=== PATIENT | male | born 1985 | race Caucasian/White ===

== ENCOUNTER 2019-01-04 07:20 | Inpatient (IN) | payer OTHER ==
[~2019-01-04] VITALS: Ht 167.6 cm; Wt 68.7 kg
--- NOTE | 2019-01-04 07:20 | NUR ---
PT IN WHEELCHAIR TO ER BED 10
[2019-01-04 07:24] VITALS: BP 145/82
[2019-01-04] MEDS ORDERED: NACL 0.9% 1,000 ML IV ONE (07:30)
[2019-01-04] MEDS ORDERED: LORazepam 2 MG/ML VIAL IVP ONE ×2 (07:30→07:40)
--- NOTE | 2019-01-04 07:33 | NUR ---
PT BIB FAMILY C/O SEIZURE X 3 AT HOME LASTING APPROX 1 MINUTE EACH. PT POST-ITCAL AND DIAPHORETIC. DR. ANDERSON AT BEDSIDE FOR EVALUATION. PT TRIAGED AT BEDSIDE. IV ESTABLISHED, SEIZURE PRECAUTIONS IN PLACE. PT SINUS TACH ON MONITOR. ON 2 LITER O2 VIA NC. PT MEDICATED ORDERED. FAMILY AT BEDSIDE. EKG COMPLETED.
[2019-01-04] MEDS ORDERED: LORazepam 2 MG/ML VIAL ONE ×2 (07:34→07:48)
--- NOTE | 2019-01-04 07:42 | NUR ---
PT HAD 2 WITNESSED SEIZURE IN ED LASTING APPROX 1 MINUTE. AIRWAY PROTECTED AND MAINTAINED. SUCTIONED PT NEEDED. DR. ATWOOD AT BEDSIDE FOR RE-EVALUATION. MEDICATED ORDERED.
--- NOTE | 2019-01-04 07:51 | NUR ---
PT BIB FAMILY WITNESSED SEIZURES AT HOME X 3 LASING APPROX. 1 MINUTE EACH. PT POSTICTAL AND DIAPHORETIC. NO INCONTINENCE NOTED. PER PT'S FAMILY PT COMPLIANT WITH SEIZURE MED: KEPPRA. BREATHING EVEN AND UNLABORED, AIRWAY MAINTAINED PLACED ON 2 LITER O2 VIA NC. PT ST ON DRAWING IN MACHINE TENDER. SEIZURE PRECAUTIONS IN PLACE.
--- NOTE | 2019-01-04 07:52 | NUR ---
PCXR AT BEDSIDE.
[2019-01-04 07:54] LABS: BASOPHILS # (AUTO) 0.1 K/uL (0.00-0.22); BASOPHILS % (AUTO) 0.7 % (0.0-2.0); EOSINOPHILS # (AUTO) 0.5 K/uL (0-0.4); EOSINOPHILS % (AUTO) 2.6 % (0.0-4.0); HEMATOCRIT 47.6 % (36-52); HEMOGLOBIN 15.6 g/dL (12.0-18.0); LYMPHOCYTES # (AUTO) 5.8 K/uL (2.0-11.5); LYMPHOCYTES % (AUTO) 31.7 % (20.5-51.1); MEAN CORPUSCULAR HEMOGLOBIN 31 pg (27-31); MEAN CORPUSCULAR HGB CONC 33 g/dL (33-37); MEAN CORPUSCULAR VOLUME 95.6 fL (80-94); MONOCYTES # (AUTO) 1.2 K/uL (0.8-1.0); MONOCYTES % (AUTO) 6.5 % (1.7-9.3); NEUTROPHILS # (AUTO) 10.7 K/uL (1.8-7.7); NEUTROPHILS % (AUTO) 58.5 % (42.2-75.2); PLATELET COUNT (AUTO) 283 K/uL (140-450); RED BLOOD CELL COUNT(AUTO) 4.98 MIL/uL (4.20-6.10); RED CELL DISTRIBUTION WIDTH 13.6 % (11.6-13.7); WHITE BLOOD COUNT (AUTO) 18.2 K/uL (4.8-10.8)
--- NOTE | 2019-01-04 08:16 | NUR ---
PT BACK FROM CT WITHOUT INCIDENT.
--- NOTE | 2019-01-04 08:19 | NUR ---
DR. ANDERSON AT BEDSIDE TO RE-EVALUATE PT. PT ABLE TO OPEN EYES UPON DR. ANDERSON'S DIRECTION. PT DROWSY. FAMILY REMAINS AT BEDSIDE.
[2019-01-04 08:26] LABS: PROTHROMBIN TIME 10.4 secs (10.8-13.4)
[2019-01-04 08:30] LABS: ALBUMIN 4.5 g/dL (3.4-5.0); ANION GAP 29.5 (8-16); CARBON DIOXIDE 14.5 mmol/L (21-32); CREATININE 1.3 mg/dL (0.7-1.3); TOTAL BILIRUBIN 0.4 mg/dL (0.0-1.0)
[2019-01-04] MEDS ORDERED: MAG SULF 2000 MG/WATER PREMIX 50 ML IV ONE (09:10)
[2019-01-04] MEDS ORDERED: KCL 20 MEQ/WATER INJ PREMIX 100 ML IV ONE (09:10)
--- NOTE | 2019-01-04 09:26 | NUR ---
PT'S FAMILY REMAINS AT BEDSIDE. NO SEIZURE ACTIVITY NOTED.
--- NOTE | 2019-01-04 09:37 | NUR ---
PT RE-EVALUATED BY DR. ANDERSON.
--- NOTE | 2019-01-04 09:40 | NUR ---
SPOKE TO DR. HOUSTON VIA TELEPHONE. PER DR. HOUSTON "ADMIT TO TELE, HAVE THEM CALL ME FOR ORDERS."
--- NOTE | 2019-01-04 09:48 | NUR ---
PT AROUSABLE TO SPEECH, STS "I FEEL TIRED." NO SEIZURE ACTIVITY NOTED. PT'S FAMILY REMAINS AT BEDSIDE. : MILLY: [phone], BROTHER: TAYLER [phone]. AWAITING ADMISSION TO [facility].
--- NOTE | 2019-01-04 10:12 | NUR ---
CALLED PHARMACY AND SPOKE TO PHARMACIST. PER PHARMACIST CRYSTAL MAGNESIUM 2GRAM AND POTASSIUM 20 MEQ CANNOT BE ADMINISTERED TOGETHER. PER DR. ANDERSON V/O ADMINISTER MAGENIUM 2 GRAM FIRST. INFUSING ORDERED. PT TOLERATING WELL. CHARGE NURSE ANAM SPOKE TO TELE CHARGE NURSE GOYO, POTASSIUM TO BE HANDED TO TELE CHARGE NURSE. PT REMAINS DROWSY, ARSOUSABLE TO SPEECH. ORIENTED X4. FAMILY AT BEDSIDE. NO FURTHER SEIZURE ACTIVITY.
--- NOTE | 2019-01-04 10:22 | NUR ---
RECEIVED PT FROM AM NURSE IN STABLE CONDITION. AWAKE,ALERT AND ORIENTED X4. ON TELE MONITOR. WITH NO C/O ANY DISCOMFORT NOR PAIN NOTED. WITH IVF INFUSING WELL ON THE RT AC G#20, CLEAR AND PATENT. PLAN OF CARE DISCUSSED AND VERBALIZED UNDERSTANDING. BED ON LOW POSITION, SIDE RAILS ARE PADDED FOR SEIZURE PRECAUTIONS. CALL LIGHT AND URINAL WITHIN EASY REACH . WILL CONTINUE TO MONITOR. Addendum: 01/04/19 at 2005 by Maribell Hernandez RN CANCEL ABOVE NOTES. WRONG TIME.
--- NOTE | 2019-01-04 10:35 | NUR ---
GOT BEDSIDE REPORT FROM CAMILLE BUSTOS. PATIENT FROM ER. PATIENT ON TELE MONIITOR AND STANDARD PRECAUTIONS IN PLACE. PATIENT AAOX4 AND ON ROOM AIR, NO DISTRESS NOTED. FALL RISK PROTOCOL IN PLACE AND SEIZURE PRECAUTIONS IN PLACE. IV ON R AC 20 G INFUSING NS AT 100, IV ASYMPTOMATIC PATENT AND INTACT. SKIN INTACT. PATIENT ABLE TO AMBULATE AND CONTINENT. BED IN LOW POSITION, CALL LIGHT WITHIN REACH, SIDE RAILS X2 UP
[2019-01-04] MEDS ORDERED: KEP500 PO (10:41)
--- NOTE | 2019-01-04 10:42 | NUR ---
Patient will be admitted to care of DR. HOUSTON. Admited to TELE. Will go to room 110-B. Belongings list completed. Report to CAMILLE GALVAN.
[2019-01-04 11:05] VITALS: BP 115/75
--- NOTE | 2019-01-04 11:15 | NUR ---
ADMINISTERED SCHEDULED MEDS, AT BEDSIDE, NO COMPLAINTS AT THIS TIME
[2019-01-04] MEDS ORDERED: DOCUSATE SODIUM 250 MG GELCAP PO PRN (11:55)
[2019-01-04] MEDS ORDERED: IPRATROPIUM 0.02% 0.5 MG/2.5 ML NEBU INH PRN (11:55)
[2019-01-04] MEDS ORDERED: SODIUM PHOSPHATE 118 ML ENEM RC PRN (11:55)
[2019-01-04] MEDS ORDERED: POTASSIUM CHLORIDE 10 MEQ TABER PO PRN (11:55)
[2019-01-04] MEDS ORDERED: ZOLPIDEM 5 MG TAB PO PRN (11:55)
[2019-01-04] MEDS ORDERED: ONDANSETRON 4 MG/2 ML VIAL IVP PRN (11:55)
[2019-01-04] MEDS ORDERED: LORazepam 2 MG/ML VIAL IVP PRN ×2 (11:55)
[2019-01-04] MEDS ORDERED: ACETAMINOPHEN 650 MG SUPP RC PRN (11:55)
[2019-01-04] MEDS ORDERED: guaiFENesin DM 200/20 MG-10 ML 10 ML UDC PO PRN (11:55)
[2019-01-04] MEDS ORDERED: ACETAMINOPHEN 325 MG TAB PO PRN (11:55)
[2019-01-04] MEDS ORDERED: ALBUTEROL 0.083% 2.5 MG/3 ML NEBU INH PRN (11:55)
[2019-01-04] MEDS ORDERED: MAGNESIUM OXIDE 400 MG TAB PO PRN (11:55)
[2019-01-04] MEDS ORDERED: MORPHINE SULFATE 2 MG/ML SYR IVP PRN (11:55)
[2019-01-04] MEDS ORDERED: ALUMINUM HYD/MAG/SIMETHICONE 30 ML UDC PO PRN (11:55)
[2019-01-04] MEDS ORDERED: BISACODYL 10 MG SUPP RC PRN (11:55)
[2019-01-04] MEDS ORDERED: POTASSIUM CHLORIDE 40 MEQ, LIDOCAINE 1% 25 MG in NACL 0.9% 250 ML IV PRN (11:55)
[2019-01-04] MEDS ORDERED: cloNIDine 0.1 MG TAB PO PRN (11:55)
[2019-01-04] MEDS ORDERED: HYDROcodone/APAP 5/325 MG 1 TAB TAB PO PRN ×2 (11:55)
[2019-01-04] MEDS ORDERED: MAG SULF 2000 MG/WATER PREMIX 50 ML IV PRN (11:55)
[2019-01-04] MEDS ORDERED: diphenhydrAMINE 50 MG/ML VIAL IVP PRN (11:55)
--- NOTE | 2019-01-04 14:53 | NUR ---
PATIENT SLEEPING, ON ROOM AIR, NO DISTRESS NOTED, AT BEDSIDE
--- NOTE | 2019-01-04 15:53 | NUR ---
PATIENT SLEEPING, ON ROOM AIR, NO COMPLAINTS AT THIS TIME
[2019-01-04 16:00] VITALS: BP 118/67
--- NOTE | 2019-01-04 17:20 | NUR ---
PATIENT SLEEPING. NO DISTRESS NOTED, ON ROOM AIR
--- NOTE | 2019-01-04 19:08 | NUR ---
GAVE REPORT TO CAMILLE CHESTER. PATIENT ENDORSED IN STABLE CONDITION
--- NOTE | 2019-01-04 19:21 | NUR ---
PAGED Rick PEREZ WILL ENDORSE TO CAMILLE CHESTER REGARDING ELEVATED WBC Addendum: 01/04/19 at 1926 by Christelle Denton RN CHARGE NURSE GOYO, SPOKE TO DR. HOUSTON REGARDING ELEVATED WBC. HE STATED PATIENT DOES NOT NEED ABX BECAUSE ELEVATED WBC IS SEIZURE RELATED. HENRIK HISTORIC SITE ADMINISTRATOR CAMILLE AWARE
--- NOTE | 2019-01-04 19:22 | NUR ---
RECEIVED PT FROM AM NURSE IN STABLE CONDITION. AWAKE,ALERT AND ORIENTED X4. ON TELE MONITOR. WITH NO C/O ANY DISCOMFORT NOR PAIN NOTED. WITH IVF INFUSING WELL ON THE RT AC G#20, CLEAR AND PATENT. PLAN OF CARE DISCUSSED AND VERBALIZED UNDERSTANDING. BED ON LOW POSITION, SIDE RAILS ARE PADDED FOR SEIZURE PRECAUTIONS. CALL LIGHT AND URINAL WITHIN EASY REACH . WILL CONTINUE TO MONITOR.
[2019-01-04 19:45] VITALS: BP 112/78
[2019-01-04] MEDS: levETIRAcetam 1,000 MG in NACL 0.9% 100 ML IV SCH (20:46)
--- NOTE | 2019-01-04 20:46 | NUR ---
PT AWAKE. NO C/O ANY DISCOMFORT NOTED. KEPPRA IVPB SCHEDULED GIVEN. WILL CONTINUE TO MONITOR.
--- NOTE | 2019-01-04 22:30 | NUR ---
MADE ROUNDS. PT ASLEEP. NO S/S OF ANY DISCOMFORT NOR PAIN NOTED.
[2019-01-05 00:20] VITALS: BP 104/62
--- NOTE | 2019-01-05 00:30 | NUR ---
PT AWAKE. VITLA SIGNS STABLE. NO C/O ANY PAIN NOTED. WILL CONTINUE TO MONITOR.
--- NOTE | 2019-01-05 02:00 | NUR ---
SLEEPING WELL. NO S/S OF ANY DISCOMFORT NOTED. NO SEIZURE ACTIVITY NOTED.
[2019-01-05 03:40] VITALS: BP 110/61
--- NOTE | 2019-01-05 04:00 | NUR ---
PT IS ASLEEP. NO S/SOF ANY DISCOMFORT NOTED.
--- NOTE | 2019-01-05 06:20 | NUR ---
PT SLEPT WELL . WITH NO SEIZURE ACTIVITY NOTED.
--- NOTE | 2019-01-05 07:32 | NUR ---
ENDORSED PT INSTABLE CONDITION TO AM NURSE FOR CONTINUITY OF CARE.
--- NOTE | 2019-01-05 07:35 | NUR ---
RECEIVED HANDOFF REPORT FROM JEWEL DIAMETER GAUGER NURSE. PT IS AWAKE IN BED. PT IS STABLE WITH NO SIGNS OF DISTRESS. IVF IS RUNNING AT TKO. IV SITE SHOWS NO SIGNS OF INFILTRATION OR INFLAMMATION. PT IS STABLE AND IN NO APPARENT DISTRESS. SEIZURE PRECAUTIONS ARE IN PLACE. WILL CONTINUE TO MONITOR.
[2019-01-05 08:00] VITALS: BP 105/69
--- NOTE | 2019-01-05 08:08 | NUR ---
PATIENT HAS BEEN SCREENED AND CATEGORIZED LOW NUTRITION RISK. PATIENT WILL BE SEEN WITHIN 7 DAYS OF ADMISSION. 01/10/[address]
[2019-01-05] MEDS: levETIRAcetam 1,000 MG in NACL 0.9% 100 ML IV SCH (09:00)
--- NOTE | 2019-01-05 09:30 | NUR ---
PT AWAKE IN BED. PT IS STABLE AND IN NO APPARENT DISTRESS. ALL SAFETY MEASURES ARE IN PLACE. WILL CONTINUE TO MONITOR.
[2019-01-05 09:40] LABS: BASOPHILS # (AUTO) 0.1 K/uL (0.00-0.22); BASOPHILS % (AUTO) 0.7 % (0.0-2.0); EOSINOPHILS # (AUTO) 0.2 K/uL (0-0.4); HEMATOCRIT 42.2 % (36-52); HEMOGLOBIN 14.3 g/dL (12.0-18.0); LYMPHOCYTES # (AUTO) 1.7 K/uL (2.0-11.5); LYMPHOCYTES % (AUTO) 23.3 % (20.5-51.1); MEAN CORPUSCULAR HEMOGLOBIN 31 pg (27-31); MEAN CORPUSCULAR HGB CONC 34 g/dL (33-37); MONOCYTES # (AUTO) 0.4 K/uL (0.8-1.0); MONOCYTES % (AUTO) 6.1 % (1.7-9.3); NEUTROPHILS # (AUTO) 4.9 K/uL (1.8-7.7); NEUTROPHILS % (AUTO) 66.9 % (42.2-75.2); PLATELET COUNT (AUTO) 217 K/uL (140-450); RED BLOOD CELL COUNT(AUTO) 4.59 MIL/uL (4.20-6.10); RED CELL DISTRIBUTION WIDTH 13.4 % (11.6-13.7); WHITE BLOOD COUNT (AUTO) 7.3 K/uL (4.8-10.8)
[2019-01-05] MEDS ORDERED: KEP500 PO (10:48)
[2019-01-05 10:57] LABS: ANION GAP 11.8 (8-16); POTASSIUM 3.8 mmol/L (3.5-5.1)
--- NOTE | 2019-01-05 11:30 | NUR ---
FREQUENT ROUNDING. PT ASLEEP IN BED. PT IS AT PT BEDSIDE. NOTABLE CHEST RISE AND FALL. PT APPEARS STABLE AND IN NO APPARENT DISTRESS. ALL SAFETY MEASURES ARE IN PLACE. WILL CONTINUE TO MONITOR.
[2019-01-05 12:00] VITALS: BP 105/65
--- NOTE | 2019-01-05 13:00 | NUR ---
INFORMED PT THAT HE IS BEING DISCHARGED. IS AT BEDSIDE. PT IS STABLE AND OK WITH THE NEW PLAN OF CARE. WILL START WORKING ON PT DISCHARGE.
[2019-01-05 13:44] VITALS: BP 105/69
[2019-01-05 13:48] VITALS: BP 105/69
--- NOTE | 2019-01-05 14:50 | NUR ---
PT IV REMOVED. IV CATH TIP IN PLACE. ID BAND REMOVED. PT AMBULATED OUT ON HIS OWN. ALL PAPERS SIGNED AND PT LEFT WITH ALL BELONGINGS.
--- NOTE | 2019-01-07 14:26 | NUR ---
CALLED DR. BANDAR BLANCO'S OFFICE [phone] AND SPOKE WITH MARYAN IZAGUIRRE. I MADE A FOLLOW UP APPOINTMENT FOR THIS PATIENT WITH HIM FOR Thursday. [address]ESS [phone] [place] [id number] PHONE [phone]. CALLED THE PHONE NUMBER FOR THE PATIENT AND THE ANSWERED AND SHE SPOKE HUNGARIAN. ANNA MARIE ADAMS INFORMED THE OF THE FOLLOW UP APPOINTMENT. Addendum: 01/07/19 at 1430 by Lacey Roe CM ANGIE SPEAKS HUNGARIAN.
== END 2019-01-05 15:00 | disposition home or self-care (01) | DRG 720 ==
LOC: MED 07:20 → MTU 10:07
PROVIDERS: ADMIT Internal Medicine Pulmonary Disease; ATTEND Internal Medicine Pulmonary Disease
DX: A41.9 Sepsis, unspecified organism (principal); D72.823 Leukemoid reaction; G40.909 Epilepsy, unspecified, not intractable, without status epilepticus; E87.6 Hypokalemia; D72.829 Elevated white blood cell count, unspecified
CPT/HCPCS: 36415; 70450; 71045; 80048; 80053; 85025; 85610; 85730; 87081; 93005; 96374; 96375; 99291; J1953; J2060; J3475; J3480; J7030; Q0092

== ENCOUNTER 2019-10-19 04:24 | Emergency (ER) | payer OTHER ==
[~2019-10-19] VITALS: Ht 167.6 cm; Wt 77.1 kg
[~2019-10-19 04:24] MED LIST: KEP500 PO
--- NOTE | 2019-10-19 04:24 | NUR ---
PT TAKEN TO BED 9
[2019-10-19 04:31] VITALS: BP 161/95
--- NOTE | 2019-10-19 04:34 | NUR ---
Dr. Del Toro examining patient.
--- NOTE | 2019-10-19 04:42 | NUR ---
34 Y/O MALE BIB FAMILY FROM HOME. PRESENTS TO ED, C/O SEIZURE. STATES PT HAD 2 EPISODES OF SEIZURE PRIOR COMING TO ED; AT 0350 AND 0400. DURING ASSESSMENT, PT IS IN POSTICTAL STAGE. ALERT TO NAME, SPEAKS WITH MUMBLED SPEECH. PUPILS DILATED. STATES PT IS COMPLIANT WITH MEDICATION, KEPPRA. DENIES ANY HEAD TRAUMA DURING SEIZURE. RIGHT SIDE OF TONGUE WOUND NOTED; NO ACTIVE BLEEDING AT THIS TIME. NO SOB/DIFFICULTY BREATHING NOTED. PT PLACED ON MONITOR. SEIZURE PRECAUTION INITIATED. ERMD AWARE. WILL CONTINUE TO MONITOR.
[2019-10-19] MEDS ORDERED: LORazepam 2 MG/ML VIAL ONE (04:47)
[2019-10-19] MEDS ORDERED: LORazepam 2 MG/ML VIAL IVP ONE (04:50)
[2019-10-19 04:52] LABS: BASOPHILS # (AUTO) 0.2 K/uL (0.00-0.22); BASOPHILS % (AUTO) 1.1 % (0.0-2.0); EOSINOPHILS # (AUTO) 1.4 K/uL (0-0.4); EOSINOPHILS % (AUTO) 8.1 % (0.0-4.0); HEMATOCRIT 50.3 % (36-52); HEMOGLOBIN 16.1 g/dL (12.0-18.0); LYMPHOCYTES # (AUTO) 7.5 K/uL (2.0-11.5); LYMPHOCYTES % (AUTO) 43.6 % (20.5-51.1); MEAN CORPUSCULAR HEMOGLOBIN 31 pg (27-31); MEAN CORPUSCULAR HGB CONC 32 g/dL (33-37); MEAN CORPUSCULAR VOLUME 96.3 fL (80-94); MONOCYTES # (AUTO) 1.1 K/uL (0.8-1.0); MONOCYTES % (AUTO) 6.5 % (1.7-9.3); NEUTROPHILS % (AUTO) 40.7 % (42.2-75.2); PLATELET COUNT (AUTO) 282 K/uL (140-450); RED BLOOD CELL COUNT(AUTO) 5.22 MIL/uL (4.20-6.10); RED CELL DISTRIBUTION WIDTH 13.8 % (11.6-13.7)
--- NOTE | 2019-10-19 04:54 | NUR ---
EPISODE OF SEIZURE THAT LASTED 35 SECONDS. ERMD AWARE. PLACED PT ON LEFT SIDE. AIRWAY CLEAR. PT RECEIVED ATIVAN 2MG IVP. SUCTIONED AIRWAY FOR SECRETIONS. NO NEW MOUTH TRAUMA NOTED. PLACED ON 15L MASK O2. WILL CONTINUE TO MONITOR.
[2019-10-19 05:00] LABS: ALBUMIN 4.5 g/dL (3.4-5.0); ANION GAP 29.2 (8-16); ASPARTATE AMINOTRANSFERASE 26 U/L (15-37); CARBON DIOXIDE 13.2 mmol/L (21-32); CHLORIDE 103 mmol/L (98-107); CREATININE 1.4 mg/dL (0.6-1.3); GFR ARICAN-AMERICAN 75 mL/min (>90); GLUCOSE 153 mg/dL (74-106); POTASSIUM 3.4 mmol/L (3.5-5.1); SODIUM SERUM 142 mmol/L (136-145); TOTAL BILIRUBIN 0.2 mg/dL (0.0-1.0); UREA NITROGEN, BLOOD 14 mg/dL (7-18); WHITE BLOOD COUNT (AUTO) 17.2 K/uL (4.8-10.8)
[2019-10-19] MEDS ORDERED: NACL 0.9% 1,000 ML IV ONE (05:10)
--- NOTE | 2019-10-19 05:31 | NUR ---
PT ASLEEP. VSS. AT BEDSIDE. WILL CONTINUE TO MONITOR.
--- NOTE | 2019-10-19 05:31 | NUR ---
Clint mccauley in EDM - 10/19/19 at 0601 by MEDJYakov PT ASLEEP. VSS. AT BEDSIDE. WILL CONTINUE TO MONITOR.
[2019-10-19 06:30] VITALS: BP 120/75
--- NOTE | 2019-10-19 06:30 | NUR ---
PT DISCHARGED WITH PAPERWORK. EDUCATED PT REGARDING D/C DIAGNOSIS AND INSTRUCTIONS. PT VERBALIZED UNDERSTANDING. TOLD PT TO FOLLOW UP WITH PCP AND WHEN TO RETURN TO ED. PT AT STABLE CONDITION. ALL QUESTIONS ANSWERED.
== END 2019-10-19 06:30 | disposition home or self-care (01) ==
LOC: MED 04:24
DX: R56.9 Unspecified convulsions (principal); Z79.899 Other long term (current) drug therapy
CPT/HCPCS: 36415; 80053; 85025; 96374; 99283; G0482; J2060; J7030

== ENCOUNTER 2020-02-26 04:18 | Inpatient (IN) | payer OTHER ==
[2020-02-26] VITALS (49 sets, daily range): BP systolic 93–194; BP diastolic 69–118
[~2020-02-26] VITALS: Ht 167.6 cm; Wt 72.1 kg
--- NOTE | 2020-02-26 04:18 | NUR ---
35 YEAR OLD MALE BROUGHT IN BY FROM HOME, PER PT HAS HAD 3 SEIZURES PRIOR TO ARRIVAL THAT WERE AROUND 2 MINS EACH. SAYS SEIZURES WERE WITNESSED, DID NOT HIT HEAD OR HAVE ANY TRAUMA. PT GCS 6([id number]). PT BREATHING EVEN AND LABORED, SKIN WARM AND DRY. BED IN LOWEST POSITION, LOCKED, BED RAIL UPX1. PT PLACED ON MONITOR, ERMD AT BEDSIDE. SEIZURE PRECAUTIONS PLACED. PMH - SEIZURES ALLERGIES - NKA
--- NOTE | 2020-02-26 04:18 | NUR ---
0411- PT TAKEN TO BED 5
--- NOTE | 2020-02-26 04:18 | NUR ---
0412- Dr. James examining patient.
--- NOTE | 2020-02-26 04:19 | NUR ---
PT FULL BODY SEIZURE FOR 2MINS, ERMD MADE AWARE
[2020-02-26] MEDS ORDERED: LORazepam 2 MG/ML VIAL IVP ONE ×2 (04:20→04:40)
[2020-02-26] MEDS ORDERED: NACL 0.9% 1,000 ML IV ONE (04:20)
--- NOTE | 2020-02-26 04:23 | NUR ---
FAMILY AT BEDSIDE SPEAKING WITH DR. BAER
--- NOTE | 2020-02-26 04:25 | NUR ---
PT RESTING WITH EYES CLOSED, BREATHING EVEN AND UNLABORED
--- NOTE | 2020-02-26 04:35 | NUR ---
X-Ray at bedside.
--- NOTE | 2020-02-26 04:37 | NUR ---
PT FULL BODY SEIZURE FOR 2MINS, ERMD MADE AWARE
[2020-02-26] MEDS ORDERED: INTUBATION KIT MC ONE (04:38)
[2020-02-26] MEDS ORDERED: levETIRAcetam 1,000 MG in NACL 0.9% 100 ML IV ONE (04:40)
--- NOTE | 2020-02-26 04:41 | NUR ---
Respiratory Therapist at bedside for respiratory intervention.
--- NOTE | 2020-02-26 04:43 | NUR ---
RT AND ERMD AT BEDSIDE FOR INTUBATION
--- NOTE | 2020-02-26 04:45 | NUR ---
Dr. James at patient bedside for procedure.
--- NOTE | 2020-02-26 04:48 | NUR ---
X-Ray at bedside.
--- NOTE | 2020-02-26 04:48 | NUR ---
PT INTUBATION COMPLETED BY ERMD, RT REMAINS AT BEDSIDE. 24 AT TEETH. SPO2 99%.
--- NOTE | 2020-02-26 04:49 | NUR ---
XRAY CONFIRMED PLACEMENT OF ET TUBE
[2020-02-26] MEDS ORDERED: ROCURONIUM 50 MG/5 ML VIAL IV ONE (04:50)
[2020-02-26] MEDS ORDERED: SUCCINYLCHOLINE CHLORIDE 200 MG/10 ML VIAL IVP ONE (04:50)
[2020-02-26 04:54] LABS: HEMATOCRIT 50.1 % (36-52); HEMOGLOBIN 15.8 g/dL (12.0-18.0); MEAN CORPUSCULAR HEMOGLOBIN 31 pg (27-31); MEAN CORPUSCULAR HGB CONC 32 g/dL (33-37); MEAN CORPUSCULAR VOLUME 98.4 fL (80-94); PLATELET COUNT (AUTO) 277 K/uL (140-450); RED BLOOD CELL COUNT(AUTO) 5.09 MIL/uL (4.20-6.10); RED CELL DISTRIBUTION WIDTH 13.7 % (11.6-13.7); WHITE BLOOD COUNT (AUTO) 21.5 K/uL (4.8-10.8)
[2020-02-26] MEDS ORDERED: levETIRAcetam 100 MG/ML VIAL IV ONE (04:54)
[2020-02-26 05:01] LABS: EOSINOPHILS % (MANUAL) 5 % (0-4); LYMPHOCYTES % (MANUAL) 54 % (20-46); MONOCYTES % (MANUAL) 9 % (5-12)
[2020-02-26 05:03] LABS: ALBUMIN 4.5 g/dL (3.4-5.0); ANION GAP 30.8 (8-16); ASPARTATE AMINOTRANSFERASE 25 U/L (15-37); CARBON DIOXIDE 13.1 mmol/L (21-32); CHLORIDE 104 mmol/L (98-107); CREATININE 1.4 mg/dL (0.6-1.3); GFR ARICAN-AMERICAN 74 mL/min (>90); GLUCOSE 181 mg/dL (74-106); SALICYLATE < 2.8 mg/dL (2.8-20.0); SODIUM SERUM 145 mmol/L (136-145); TOTAL BILIRUBIN 0.3 mg/dL (0.0-1.0); UREA NITROGEN, BLOOD 20 mg/dL (7-18)
[2020-02-26 05:04] LABS: ACETAMINOPHEN < 0.5 ug/ml (10-30)
[2020-02-26 05:05] LABS: POTASSIUM 2.9 mmol/L (3.5-5.1)
[2020-02-26] MEDS ORDERED: POTASSIUM CHLORIDE 20% 40 MEQ/15 ML UDC NG ONE (05:05)
--- NOTE | 2020-02-26 05:07 | NUR ---
PT FULL BODY SEIZURE FOR 2MINS, ERMD MADE AWARE
--- NOTE | 2020-02-26 05:14 | NUR ---
PT INTUBATED AND PLACED ON DOCUMENTED SETTINGS. VENT PLUGGED INTO RED OUTLET. BMV AT BEDSIDE. ETT SECURED AND INTACT. WILL CONT TO MONITOR
--- NOTE | 2020-02-26 05:15 | NUR ---
Physician order given to place soft type restraints to upper extremities to prevent pulling on lines. Resraints placed with quick-release ties to bed frame. Pt under observation.
--- NOTE | 2020-02-26 05:16 | NUR ---
# 16 FR Doyle catheter with 10 ml utilizing sterile technique. Immediate return of 600 ml yellow urine noted. Bedside drainage bag placed below level of bladder. Urine sample collected and sent to lab. Pt tolerated procedure well.
--- NOTE | 2020-02-26 05:16 | NUR ---
RRespiratory Therapist at bedside for respiratory intervention.
--- NOTE | 2020-02-26 05:18 | NUR ---
# 16 FR NG tube placed to LEFT nare. Placement checked by auscultation of instilled air into stomach and aspiration of gastric contents. Tubing taped in place to prevent dislodging. Patient tolerated well.
[2020-02-26] MEDS ORDERED: PROPOFOL 1000 MG/100 ML PREMIX 100 ML IV ONE ×2 (05:22→05:25)
--- NOTE | 2020-02-26 05:27 | NUR ---
X-Ray at bedside.
--- NOTE | 2020-02-26 05:30 | NUR ---
CONFIRMED PLACEMENT OF NGT BY XRAY, ERMD READING XRAY AT BEDSIDE
--- NOTE | 2020-02-26 05:30 | NUR ---
PROPOFOL ADMINISTERED TITRATING ORDERED. RN REMAINS AT BEDSIDE OF PT
--- NOTE | 2020-02-26 05:43 | NUR ---
MEDICATION ADMINISTERED ORDERED BY NG TUBE
--- NOTE | 2020-02-26 05:50 | NUR ---
unable to obtain abg. dr. hagan notified
--- NOTE | 2020-02-26 06:00 | NUR ---
PT RESTING WITH EYES CLOSED, BREATHING EVEN AND UNLABORED. PT ON VENT SETTINGS ORDERED
[2020-02-26] MEDS ORDERED: PROPOFOL 1000 MG/100 ML PREMIX 100 ML IV PRN ×2 (06:15→08:20)
[2020-02-26 06:20] LABS: BARBITURATE, URINE NEGATIVE ng/ml (NEG <=200); BENZODIAZEPINE, URINE NEGATIVE ng/mL (NEG <=200); CANNABINOID, URINE NEGATIVE ng/mL (NEG <=50); COCAINE, URINE NEGATIVE ng/mL (NEG <=300); OPIATE, URINE NEGATIVE ng/mL (NEG <=2000); PHENCYCLIDINE SCREEN,URINE NEGATIVE ng/mL (NEG <=25)
[2020-02-26] MEDS ORDERED: PIPERACILLIN/TAZOBACTAM 3.375 GM in DEXTROSE 5% 50 ML IV ONE (06:20)
--- NOTE | 2020-02-26 06:37 | NUR ---
Patient will be admitted to care of Dr Yoder. Admited to ICU. Will go to room 5. Belongings list completed. Report to Robles OBRIEN.
--- NOTE | 2020-02-26 06:37 | NUR ---
PT RECEIVED FROM ER. TRANSFERRED TO ICU 5. SINUS RHYTHM ON MONITOR. ETT TO VENT. AC/VC MODE. FIO2 50%, TV 450, RATE 16, PEEP 5. LT AC 18 G, INTACT, PATENT, GOOD BLOOD RETURN. RT AC 18 GAUGE INFUSING PROPOFOL 5MCG/KG/MIN. DRY WEIGHT 73.9KG. NGT IN L NARE, CLAMPED. PT ON BILAT SOFT WRIST RESTRAINTS. ULRICH CATHETER IN PLACE. WILL CONTINUE MONITOR.
--- NOTE | 2020-02-26 07:27 | NUR ---
RECEIVED ON A BugglSCAPE R860 VENTILATOR PLUGGED INTO RED OUTLET TOLERATING WELL WITHOUT ADVERSE REACTIONS NOTED TO AN ENDOTRACHEAL TUBE #7.5 SECURED AT 24cm TEETH/GUM LINE SECURED WITH ANCHOR FAST CXR REVIEWED FOR ETT PLACEMENT IMPRESSION: 2.3cm ABOVE NOAH AMBU BAG NOTED AT BEDSIDE LOC SEDATED GOOD CHEST AND AERATION THROUGHOUT BILATERAL LUNG DAILY AIRWAY PATENT
--- NOTE | 2020-02-26 07:30 | NUR ---
RECEIVED PT REPORT FROM WILDLIFE TECHNICIAN RN. PT IS ETT TO VENT, OPEN EYES TO NAME, AC/VC FIO2 50%, TV 450, RR16, PEEP 5. SR ON MONITOR. TEMP 98.9F. IV TO LEFT AC 18G, PATENT AND INTACT WITH PROPOFOL RUNNING AT 5MCG/KG/MIN. DRY WEIGHT 73.9 KG. RIGHT AC 18G, SL, PATENT AND INTACT. LUNG SOUNDS CLEAR, S1 AND S2 HEART SOUNDS HEARD, RADIAL AND PEDAL PULSES PALPABLE. BOWEL SOUNDS ACTIVE. ULRICH CATHETER DRAINING CLEAR YELLOW URINE. FALL PRECAUTIONS IN PLACE, HOB 30 DEGREES. BILATERAL SOFT WRIST RESTRAINTS ON, NO SIGNS OF INJURY. WILL CONTINUE TO MONITOR.
--- NOTE | 2020-02-26 07:34 | NUR ---
ZOSYN ONCE, 1L NS BOLUS AND 40MEQ K DUR WAS GIVEN IN ER.
[2020-02-26] MEDS ORDERED: LEVE750T3 PO (07:46)
--- NOTE | 2020-02-26 07:55 | NUR ---
REVIEWED ABG SAMPLE REPORT TITRATED FIO2 TO 35% MAIRA GUADALUPE/RN NOTIFIED
[2020-02-26] MEDS ORDERED: POTASSIUM CHLORIDE 10 MEQ TABER PO PRN (08:15)
[2020-02-26] MEDS ORDERED: MAGNESIUM OXIDE 400 MG TAB PO PRN (08:15)
[2020-02-26] MEDS ORDERED: ONDANSETRON 4 MG/2 ML VIAL IVP PRN (08:15)
[2020-02-26] MEDS ORDERED: MORPHINE SULFATE 2 MG/ML SYR IVP PRN (08:15)
[2020-02-26] MEDS ORDERED: ACETAMINOPHEN 325 MG TAB PO PRN (08:15)
[2020-02-26] MEDS ORDERED: MAG SULF 2000 MG/WATER PREMIX 50 ML IV PRN (08:15)
[2020-02-26] MEDS ORDERED: LORazepam 2 MG/ML VIAL IVP PRN (08:15)
[2020-02-26] MEDS ORDERED: DOCUSATE SODIUM 250 MG GELCAP PO PRN (08:15)
--- NOTE | 2020-02-26 08:15 | NUR ---
SPOKE WITH DR HOUSTON OVER THE PHONE, ORDERS RECEIVED, PROPOFOL MARITZA HAAS -2 Addendum: 02/26/20 at 1102 by Brian Spain RN FULL CODE, NO CVC NEEDED AT THIS TIME, NPO EX MED UNTIL DR HOUSTON SEEN PT TODAY, DR HOUSTON WILL PUT SOME ORDERS HIMSELF.
--- NOTE | 2020-02-26 09:10 | NUR ---
NEW IV 20G INSERTED ON LEFT HAND, WILL RUN KEPPRA VIA THE NEW IV.
--- NOTE | 2020-02-26 09:12 | NUR ---
CELL MAKER NOTE: SW ATTEMPTED TO CONTACT PATIENT'S CLARE CROWLEY [phone] AND [phone]. SW LEFT VM TO COMPLETE ASSESSMENT. SW WILL FOLLOW UP.
[2020-02-26] MEDS: levETIRAcetam 1,000 MG in NACL 0.9% 100 ML IV SCH ×2 (09:17→21:29)
--- NOTE | 2020-02-26 09:46 | NUR ---
SEDATED STABLE NO EVIDENCE OF RESPIRATORY DISTRESS NOTED GOOD CHEST RISE ENDOTRACHEAL SUCTION FOR SMALL SEMI THICK YELLOW WITH BLOOD TINGE SECRETIONS NOTED AIRWAY PATENT Addendum: 02/26/20 at 0957 by Eran Kenney RT SATURATION 99% ON FIO2 OF 35% TITRAED FIO2 TO 30% MARIA GUADALUPE/RN NOTIFIED
--- NOTE | 2020-02-26 10:20 | NUR ---
ORAL CARE AND ULRICH CARE DONE
--- NOTE | 2020-02-26 11:26 | NUR ---
RESTING WELL NO SOB NOTED GOOD CHEST RISE AIRWAY PATENT
[2020-02-26] MEDS: ALBUTEROL 0.083% 2.5 MG/3 ML NEBU INH SCH ×3 (11:42→19:11)
[2020-02-26 12:29] LABS: BASOPHILS % (AUTO) 0.2 % (0.0-2.0); HEMATOCRIT 44.4 % (36-52); HEMOGLOBIN 14.9 g/dL (12.0-18.0); LYMPHOCYTES % (AUTO) 5.7 % (20.5-51.1); MEAN CORPUSCULAR HEMOGLOBIN 31 pg (27-31); MEAN CORPUSCULAR HGB CONC 34 g/dL (33-37); MEAN CORPUSCULAR VOLUME 91.4 fL (80-94); MONOCYTES % (AUTO) 6.2 % (1.7-9.3); NEUTROPHILS # (AUTO) 14.9 K/uL (1.8-7.7); NEUTROPHILS % (AUTO) 87.9 % (42.2-75.2); PLATELET COUNT (AUTO) 215 K/uL (140-450); RED BLOOD CELL COUNT(AUTO) 4.86 MIL/uL (4.20-6.10); RED CELL DISTRIBUTION WIDTH 13.7 % (11.6-13.7)
--- NOTE | 2020-02-26 13:29 | NUR ---
NO RESPIRATORY DISTRESS NOTED GOOD CHEST RISE AIRWAY PATENT
--- NOTE | 2020-02-26 13:50 | NUR ---
PT BRIEFLY WOKE UP, REORIENTED PT. PT WENT BACK TO SLEEP. STILL ON PROPOFOL 10MCG/KG/MIN.
--- NOTE | 2020-02-26 15:49 | NUR ---
NO RESPIRATORY DISTRESS NOTED EQUAL CHEST RISE GOOD AERATION THROUGHOUT BILATERAL LUNG DAILY AIRWAY PATENT
--- NOTE | 2020-02-26 16:29 | NUR ---
BEDSIDE STATES FOR NURSE TO TURN OFF SEDATION AND WEAN PT. IF PT IS ABLE TO WEAN THEN TO EXTUBATE PT. NO OTHER ORDERS AR THIS TIME. NURSE AWARE.
[2020-02-26] MEDS ORDERED: MULTIVITAMIN-12 10 ML, THIAMINE 100 MG, MAGNESIUM SULFATE 50% 2,000 MG, FOLIC ACID 1 MG... IV SCH ×5 (16:35)
--- NOTE | 2020-02-26 16:37 | NUR ---
PT PLACED ON CPAP 5 PS 5 FIO2 24% PER REQUEST OF . PT OPENS HIS EYES AND IS ABLE TO FOLLOW SIMPLE COMMANDS.
[2020-02-26] MEDS ORDERED: POTASSIUM CHLORIDE 20% 40 MEQ/15 ML UDC GT SCH (17:00)
[2020-02-26] MEDS ORDERED: THIAMINE 200 MG/2 ML VIAL ONE (17:47)
--- NOTE | 2020-02-26 18:02 | NUR ---
EXTUBATED PATIENT PLACED ON SUPPLEMENTAL OXYGEN AT 3 LPM VIA NC
--- NOTE | 2020-02-26 18:05 | NUR ---
DC NGT PER , DR HOUSTON WANTS PT ON REGULAR DIET.
[2020-02-26] MEDS ORDERED: FOLIC ACID 5 MG/ML SYR ONE (18:09)
[2020-02-26] MEDS ORDERED: MULTIVITAMIN-12 10 ML VIAL IV ONE (18:10)
--- NOTE | 2020-02-26 19:16 | NUR ---
RECEIVED PT FROM AM SHIFT. PT SEEN AND ASSESSED. FOUND PT ON 3L NASAL CANNULA WITH SPO2 OF 98%. HHN TX GIVEN ORDERED AND PT TOLERATED WELL WITH NO ADVERSE REACTION. PT IN NO RESPIRATORY DISTRESS AT THIS TIME. ADEQUATE CHEST RISE AND FALL. AMBU BAG AT BEDSIDE, AND HOB > 30. WILL CONTINUE TO MONITOR PT.
--- NOTE | 2020-02-26 19:23 | NUR ---
STARTED BANANA BAG, MULTIVITAMIN, FOLIC ACID, THIAMINE ADDED TO 1L D5 BAG RUNNING AT 100ML/HR, 2G MG RIDER WAS GIVEN SEPARATELY RUNNING AT 25ML/HR.
--- NOTE | 2020-02-26 20:00 | NUR ---
PT IS ALERT AND ORIENTED X4. ABLE TO MAKE NEEDS KNOWN. PT ON NASAL CANNULA @ 3L. NO RESPIRATORY DISTRESS. CHEST RISE SYMMETRICAL. ORAL MUCOSA PINK AND MOIST. CLEAR LUNG SOUNDS UPON AUSCULTATION, BOWEL SOUNDS ACTIVE. LAST BM WAS YESTERDAY PER PT. SKIN WARM DRY AND INTACT. PERIPHERAL LINES ON THE RIGHT AND LEFT AC G20, LEFT HAND 20G. BANANA BAG STILL INFUSING @ 100MLS/HR. SR-ST ON THE MONITOR. PT AFEBRILE. BED IN LOWEST POSITIONED SIDE RAILS UP. ALL SAFETY MEASURES IN PLACE. WILL CONTINUE TO MONITOR.
--- NOTE | 2020-02-26 21:30 | NUR ---
KEPPRA IV HUNG AND INFUSING AT THIS TIME. NO SEIZURE EPISODE OBSERVED. WILL CONTINUE TO MONITOR.
--- NOTE | 2020-02-26 22:00 | NUR ---
PT IS RESTING IN BED WITH EYES CLOSED. NO DISTRESS OBSERVED. ULRICH CARE PROVIDED. WILL CONTINUE TO MONITOR.
[2020-02-27] VITALS: BP 112/78
--- NOTE | 2020-02-27 00:14 | NUR ---
NO CONCERNS AND COMPLAINTS AT THIS TIME. ULRICH IN PLACE DRAINING TO GRAVITY. RESTING IN BED QUIETLY. WILL CONTINUE TO MONITOR.
[2020-02-27] MEDS: ALBUTEROL 0.083% 2.5 MG/3 ML NEBU INH SCH ×4 (00:22→11:23)
--- NOTE | 2020-02-27 00:24 | NUR ---
HHN TX GIVEN ORDERED AND PT TOLERATED WELL WITH NO ADVERSE REACTION. PT IN NO RESPIRATORY DISTRESS AT THIS TIME. WILL CONTINUE TO MONITOR PT.
[2020-02-27 02:00] VITALS: BP 117/73
[2020-02-27 04:00] VITALS: BP 115/73
--- NOTE | 2020-02-27 04:17 | NUR ---
HHN TX GIVEN ORDERED AND PT TOLERATED WELL WITH NO ADVERSE REACTION. PT IN NO RESPIRATORY DISTRESS AT THIS TIME
--- NOTE | 2020-02-27 05:03 | NUR ---
NO DISTRESS OBSERVED. CALL LIGHT AND HYDRATION WITHIN REACH. WILL CONTINUE TO MONITOR.
[2020-02-27 05:54] LABS: BASOPHILS % (AUTO) 0.3 % (0.0-2.0); EOSINOPHILS # (AUTO) 0.1 K/uL (0-0.4); EOSINOPHILS % (AUTO) 0.4 % (0.0-4.0); HEMATOCRIT 42.2 % (36-52); HEMOGLOBIN 13.9 g/dL (12.0-18.0); LYMPHOCYTES # (AUTO) 1.9 K/uL (2.0-11.5); LYMPHOCYTES % (AUTO) 14.8 % (20.5-51.1); MEAN CORPUSCULAR HEMOGLOBIN 31 pg (27-31); MEAN CORPUSCULAR HGB CONC 33 g/dL (33-37); MEAN CORPUSCULAR VOLUME 92.6 fL (80-94); MONOCYTES # (AUTO) 1.2 K/uL (0.8-1.0); MONOCYTES % (AUTO) 9.4 % (1.7-9.3); NEUTROPHILS # (AUTO) 9.7 K/uL (1.8-7.7); NEUTROPHILS % (AUTO) 75.1 % (42.2-75.2); PLATELET COUNT (AUTO) 194 K/uL (140-450); RED BLOOD CELL COUNT(AUTO) 4.55 MIL/uL (4.20-6.10); WHITE BLOOD COUNT (AUTO) 12.9 K/uL (4.8-10.8)
[2020-02-27 06:00] VITALS: BP 115/73
[2020-02-27 07:17] LABS: ALBUMIN 3.6 g/dL (3.4-5.0); ANION GAP 14.6 (8-16); CARBON DIOXIDE 25.1 mmol/L (21-32); CREATININE 0.9 mg/dL (0.6-1.3); POTASSIUM 3.7 mmol/L (3.5-5.1); TOTAL BILIRUBIN 0.6 mg/dL (0.0-1.0)
--- NOTE | 2020-02-27 07:20 | NUR ---
ENDORSED PT TO DAY SHIFT NURSE FOR CONTINUITY OF CARE.
--- NOTE | 2020-02-27 07:30 | NUR ---
RECEIVED PT REPORT FROM RESIST COATER DEVELOPER RN. PT IS AAOX3, CALM AND COOPERATIVE, AFEBRILE. DENIES NAUSEA, DENIES DIFFICULTY SWALLOWING. SR ON MONITOR. IV TO LEFT AND RIGHT AC 18G, PATENT AND INTACT, SL. LEFT HAND 20G, RUNNING NS TKO. LUNG SOUNDS CLEAR, S1 AND S2 HEART SOUNDS HEARD, RADIAL AND PEDAL PULSES PALPABLE. BOWEL SOUNDS ACTIVE. ULRICH CATHETER DRAINING CLEAR YELLOW URINE. FALL PRECAUTIONS IN PLACE, HOB 30 DEGREES.
[2020-02-27 08:00] VITALS: BP 118/72
[2020-02-27] MEDS ORDERED: ENOXAPARIN 40 MG/0.4 ML SYR SUBQ SCH (09:00)
[2020-02-27] MEDS ORDERED: PANTOPRAZOLE 40 MG INJ VIAL IVP SCH (09:00)
[2020-02-27] MEDS: levETIRAcetam 1,000 MG in NACL 0.9% 100 ML IV SCH (09:24)
--- NOTE | 2020-02-27 09:27 | NUR ---
PATIENT HAS BEEN SCREENED AND CATEGORIZED MODERATE NUTRITION RISK. PATIENT WILL BE SEEN WITHIN 3-5 DAYS OF ADMISSION. 02/28/20 03/01/[address]
[2020-02-27 11:00] VITALS: BP 119/76
--- NOTE | 2020-02-27 11:40 | NUR ---
SERG FLETCHER DC'S PER MD ORDER.
--- NOTE | 2020-02-27 12:10 | NUR ---
GOT PT UP AND SAT IN THE CHAIR FOR LUNCH. PT WAS ABLE TO GET OUT BED HIMSELF.
--- NOTE | 2020-02-27 12:26 | NUR ---
FORMULA CLERK NOTE: SW WAS UNABLE TO MEET WITH PATIENT AT BEDSIDE DUE TO MEDICAL CONDITION. SW CONTACTED PATIENT'S CLARE CROWLEY [phone] TO COMPLETE ASSESSMENT. SW LEFT . ANNA MARIE WILL FOLLOW UP.
--- NOTE | 2020-02-27 13:22 | NUR ---
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 PAST MEDICAL HISTORY INCLUDE SEIZURE DISORDER. INITIAL DIAGNOSIS OF SEIZURES, STATUS EPILEPTICUS. CURRENT LABS WNL. MRSA PENDING. DOWNGRADED TO TELE TODAY AT 0732. SEEN BY DR. SAMPSON, FOR IA HOME TODAY NO NEEDS.
--- NOTE | 2020-02-27 13:30 | NUR ---
PT HAD LUNCH, URINATED 1 TIME AFTER ULRICH WAS REMOVED. REMOVED IV CATHETERS ON THE LEFT AND RIGHT AC AND LEFT HAND, TIP INTACT, PRESSURE APPLIED. DC INSTRUCTION GIVEN, PT VERBALIZED UNDERSTANDING. ASKED IF PT ALREADY HAS APPT WITH NEUROLOGIST, PT SAID HE HAS AN APPT FOR THIS MONTH. ASKED IF PT HAS KEPPRA AT HOME. PT SAID YES AND HE TAKES 750MG 2 TABS A DAY. ALL DC PAPER SIGNED. PT PICKED UP BY PT'S CLARE.
== END 2020-02-27 13:30 | disposition home or self-care (01) | DRG 53 ==
LOC: MED 04:18 → MIC 06:11
PROVIDERS: ADMIT Internal Medicine Pulmonary Disease; ATTEND Internal Medicine Pulmonary Disease
PROC: 0BH17EZ Insertion of Endotracheal Airway into Trachea, Via Natural or Artificial Opening (ICD-10-PCS; principal; 2020-02-26)
PROC: 5A1935Z Respiratory Ventilation, Less than 24 Consecutive Hours (ICD-10-PCS; 2020-02-26)
DX: G40.909 Epilepsy, unspecified, not intractable, without status epilepticus (principal); J96.00 Acute respiratory failure, unspecified whether with hypoxia or hypercapnia; E87.6 Hypokalemia; D72.823 Leukemoid reaction; Z79.899 Other long term (current) drug therapy; Z91.19 Patient's noncompliance with other medical treatment and regimen
CPT/HCPCS: 36415; 36600; 71045; 80053; 80305; 82009; 82803; 85025; 87081; 93005; 94002; 94640; 96365; 99285; A9153; C9113; G0480; G0482; J1650; J1953; J2060; J2704; J3411; J3475; J3490; J7030; J7060; J7613; Q0092